=== PATIENT | female | born 1970 | race Caucasian/White ===

== ENCOUNTER → 2017-04-25 | Outpatient (CLI) | payer OTHER ==
--- NOTE | 2017-04-25 18:02 | US ---
EXAMINATION TYPE: US abdomen complete DATE OF EXAM: 04/25/2017 COMPARISON: NONE CLINICAL HISTORY: R10.9 abdominal pain. RUQ pain EXAM MEASUREMENTS: Liver Length: 16 cm Gallbladder Wall: 0.4 cm CBD: 0.5 cm Spleen: 10.7 cm Right Kidney: 11.9 x 4.7 x 3.9 cm Left Kidney: 12. 1 x 5.2 x 4.6 cm Pancreas: Tail obscured by overlying bowel gas Liver: wnl Gallbladder: gallstones seen Evidence for sonographic Hickman's sign: No CBD: wnl Spleen: wnl Right Kidney: No hydronephrosis or masses seen Left Kidney: Question possible duplex collecting system Upper IVC: wnl Abd Aorta: wnl The liver is homogenous. The intrahepatic portion of the IVC and proximal abdominal aorta are within normal limits. Common bile duct is unremarkable. The visualized portions of the pancreas are homog enous. The spleen is unremarkable. Kidneys are symmetric and free of hydronephrosis. No renal lesi ons are seen. IMPRESSION: Gallstones seen with thickened gallbladder wall. No evidence for pericholecystic fluid or common bile duct dilatation at this time.
== END | disposition home or self-care (01) ==
LOC: RADUSMAIN 16:54
PROVIDERS: ATTEND Family Medicine
DX: K80.20 Calculus of gallbladder without cholecystitis without obstruction (principal); K82.8 Other specified diseases of gallbladder
CPT/HCPCS: 76700

== ENCOUNTER 2017-05-18 10:13 | Day surgery (SDC) | payer OTHER ==
[2017-05-16 16:35] VITALS: BMI 29.0
--- NOTE | 2017-05-18 07:50 | P.GSHP ---
History of Present Illness H&P Date: 05/18/17 CHIEF COMPLAINT: Cholecystitis HISTORY OF PRESENT ILLNESS: The patient is a 46-year-old female who presents with history of epigastric including right upper quadrant abdominal pain. She underwent diagnostic studies for her gallbladder. Separately her clinical picture was consistent with cholecystitis. Now she presents for surgical intervention. PAST MEDICAL HISTORY: Please see list PAST SURGICAL HISTORY: Please see list MEDICATIONS: Please see list ALLERGIES: Denies. SOCIAL HISTORY: No illicit drug use or recent tobacco use FAMILY HISTORY: Pertinent for gallbladder disease REVIEW OF ORGAN SYSTEMS: CONSTITUTIONAL: No reports of fevers or chills. HEENT: Denies any troubles with the vision or hearing. PHYSICAL EXAM: VITAL SIGNS: Afebrile vital signs stable GENERAL: Well-developed pleasant in no acute distress. HEENT: No scleral icterus. Extraocular movements grossly intact. Moist buccal mucosa. NECK: Supple without lymphadenopathy. CHEST: Unlabored respirations. Equal bilateral excursions. CARDIOVASCULAR: Regular rate regular rhythm rhythm. Distal 2+ pulses. ABDOMEN: Soft, nondistended. Tender along the epigastrium and right upper quadrant. MUSCULOSKELETAL: No clubbing, cyanosis, or edema. NEURO: Cranial nerves II to XII within normal limits. No focal or lateralizing signs. PSYCH: Alert and oriented to person, place and time. ASSESSMENT: 1. Epigastric and right upper quadrant abdominal pain 2. Chronic cholecystitis PLAN: 1. Will need a robotic laparoscopic cholecystectomy possible open. Benefits and risks were described. 2. Heparin for DVT prophylaxis 5000 units. 3. Antibiotic prophylaxis. Past Medical History Past Medical History: Hypertension Additional Past Medical History / Comment(s): RUQ pain @times History of Any Multi-Drug Resistant Organisms: None Reported Past Surgical History: Breast Surgery, Uterine Ablation Additional Past Surgical History / Comment(s): CAROLYNN BREAST AUGMENTATION; D&C Past Anesthesia/Blood Transfusion Reactions: Postoperative Nausea & Vomiting ( PONV) Smoking Status: Never smoker - Past Family History Father Family Medical History: Cancer Additional Family Medical History / Comment(s): PROSTATE Medications and Allergies Home Medications Medication Instructions Recorded Confirmed Type Chlorthalidone [Hygroton] 25 mg PO DAILY 05/17/17 05/17/17 History Allergies Allergy/AdvReac Type Severity Reaction Status Date / Time No Known Allergies Allergy Verified 05/16/17 16:08
[~2017-05-18 10:13] MED LIST: ACETAMINOPHEN IV (For NPO) 1,000 MG in EMPTY BAG 1 BAG IVPB ONE; DEXAMETHASONE SOD PHOSPHATE 10 MG/ML 1 ML VIAL IV ONE; HEPARIN SODIUM,PORCINE 5,000 UNIT/ML 1 ML VIAL SQ ONE; LIDOCAINE 1% 20 ML VIAL (10MG/ML) FOR IV START INTRADERMA PRN; ONDANSETRON 4 MG/2 ML VIAL IVP ONE; SCOPOLAMINE 1.5MG/72HR PATCH TRANSDERM ONE; ceFAZolin IN SWFI 2 GM/20 ML SYRINGE IVP ONE; fentaNYL (PF) 50 MCG/ML 2 ML AMP IV PRN
[2017-05-18] MEDS ORDERED: INDOCYANINE GREEN 25 MG VIAL IV STA (10:47)
[2017-05-18] MEDS: LACTATED RINGERS 1,000 ML IV SCH (11:38)
[2017-05-18 11:52] LABS: Basophils % (A) 1 %; Eosinophils # (A) 0.1 k/uL (0-0.7); Eosinophils % (A) 1 %; Lymphocytes # (A) 1.6 k/uL (1.0-4.8); Lymphocytes % (A) 20 %; MCH 28.5 pg (25.0-35.0); MCHC 33.4 g/dL (31.0-37.0); MCV 85.4 fL (80.0-100.0); Mean Platelet Volume 6.8; Monocytes # (A) 0.5 k/uL (0-1.0); Monocytes % (A) 6 %; Neutrophils # (A) 5.7 k/uL (1.3-7.7); Neutrophils % (A) 71 %; Platelet Count 249 k/uL (150-450); RBC 4.91 m/uL (3.80-5.40); RDW 12.4 % (11.5-15.5)
[2017-05-18 12:18] LABS: ALT 27 U/L (9-52); AST 16 U/L (14-36); Albumin 3.8 g/dL (3.5-5.0); Alkaline Phosphatase 60 U/L (38-126); Anion Gap 9 mmol/L; Blood Urea Nitrogen 12 mg/dL (7-17); Calcium 9.2 mg/dL (8.4-10.2); Carbon Dioxide 30 mmol/L (22-30); Chloride 103 mmol/L (98-107); Glucose 90 mg/dL (74-99); Sodium 142 mmol/L (137-145); Total Bilirubin 0.6 mg/dL (0.2-1.3); Total Protein 6.6 g/dL (6.3-8.2)
[2017-05-18 12:25] LABS: Potassium 2.9 mmol/L (3.5-5.1)
[2017-05-18] MEDS ORDERED: POTASSIUM CHLORIDE 20 MEQ in SODIUM CHLORIDE 0.9% 100 ML IVPB STA (12:31)
[2017-05-18] MEDS ORDERED: SUCCINYLCHOLINE CHLORIDE 100 MG/5 ML SYR IV ONE (12:54)
[2017-05-18] MEDS ORDERED: LIDOCAINE 1% INJ 10MG/ML (20 ML MDV) ONE (12:54)
[2017-05-18] MEDS ORDERED: fentaNYL (PF) 50 MCG/ML 2 ML AMP ONE (12:54)
[2017-05-18] MEDS ORDERED: GLYCOPYRROLATE 0.2 MG/ML 2 ML VIAL ONE (12:54)
[2017-05-18] MEDS ORDERED: MIDAZOLAM 2 MG/2 ML VIAL ONE (12:54)
[2017-05-18] MEDS ORDERED: PROPOFOL 10 MG/ML 20 ML VIAL IV ONE (12:54)
[2017-05-18] MEDS ORDERED: NEOSTIGMINE 1 MG/ML 10 ML VIAL ONE (12:54)
[2017-05-18] MEDS ORDERED: KETOROLAC 30 MG/ML 1 ML VIAL ONE (12:54)
[2017-05-18] MEDS ORDERED: ROCURONIUM BROMIDE 10 MG/ML 10 ML VIAL IV ONE (12:54)
[2017-05-18] MEDS ORDERED: BUPIVACAINE (PF) 0.25% 30 ML VIAL SQ ONE (13:27)
[2017-05-18] MEDS ORDERED: POTASSIUM CHLORIDE 20 MEQ in SODIUM CHLORIDE 0.9% 100 ML IVPB ONE (14:00)
[2017-05-18 15:09] VITALS: TEMP 98
--- NOTE | 2017-05-18 15:34 | P.OP ---
Date of Procedure: 05/18/17 Description of Procedure: SURGEON: MANISH EDMONDSON MD NURSING TECHNICIAN: 1. Batool Delarosa 2. Arabella Sam PREOPERATIVE DIAGNOSES: 1. Chronic cholecystitis with gallstones. 2. Hypertension. 3. Hypokalemia. 4. Right upper quadrant abdominal pain. POSTOPERATIVE DIAGNOSES: 1. Chronic cholecystitis with gallstones. 2. Hypertension. 3. Hypokalemia. 4. Right upper quadrant abdominal pain. 5. Right inguinal hernia, indirect. 6. Umbilical hernia. OPERATION: 1. Robotic-assisted da Ed Xi laparoscopic cholecystectomy, multiport with FIREFLY ESTIMATED BLOOD LOSS: 10 mL. SPECIMENS REMOVED: (Gallbladder) COMPLICATIONS: None. Condition: stable Disposition: floor OPERATIVE FINDINGS: 1. Large gallstone over 3 cm from a long gallbladder. 2. [place] technique performed to avoid injury to the common bile duct. 3. Right inguinal hernia, indirect. 4. Umbilical hernia. INDICATIONS: The patient is a 46-year-old female who presents with symptomatic gallstones. Surgical intervention with a robotic cholecystectomy was described at length including injury to the biliary tree, bleeding, infection, need for further surgery. Informed consent was obtained. Robotic assisted laparoscopic approach was described. Benefits and risks of the procedure including but not limited to bleeding, infection, injury to the biliary tree was described. Informed consent was obtained. DESCRIPTION OF PROCEDURE: Patient was brought to the operating room, placed in supine position. After general induction, the abdomen had been prepped and draped in standard sterile fashion. The robotic da Ed XI system was primed. After a timeout protocol was performed, the patient had been prepped and draped in standard sterile fashion. The patient was injected with indocyanine green. The robot was docked along the left lateral abdomen. The patient was repositioned in reverse Trendelenburg position. Please note prior to docking of the robot; however, a 5 mm 0 degrees laparoscopic trocar entry was performed along the left upper quadrant. The abdomen was insufflated to 15 mm Hg pressure which he tolerated well. Diagnostic laparoscopy demonstrated no injury to the small bowel or viscera. Right indirect inguinal hernia was identified including a small umbilical hernia. Next, two 8 mm robotic ports were placed along the right upper abdomen. The camera 8-mm port was maintained along the epigastrium. Another 8 mm port was placed along the left upper abdominal wall after exchanging the 5 mm port. Please note that the ports were placed at least 10 to 15 cm away from the target anatomy of the gallbladder. Using a grasper for arm 3, a grasper for arm 2, including hook cautery for arm 1 , the robotic system was docked and primed as described. Instruments were interchanged by the banking assistant including hook cautery, Bovie cautery scissors and clip appliers. I had sat at the console. The gallbladder was bulbous with over 3 cm stone adding complexity to the case. Next, adhesions were identified along the infundibulum of the gallbladder and addressed using hook cautery. The gallbladder fundus was retracted over the dome of the liver. Initial attention was brought to the infundibulum which was gently retracted in the inferior lateral approach. Despite adhesionolysis, the cystic duct was was secured by a redundant gallbladder infundibulum. The common bile duct was identified. FIREFLY was used to identify the common bile duct and cystic duct. Decompression of the gallbladder was performed to maneuver the gallbladder with contamination of the case. A dome down technique using was performed from the gallbladder fundus to the infundibulum. PLASTIC clip appliers were used along the cystic duct with 3 clips placed followed by another 3 clips along the cystic artery. The hepatic fossa was completely dry. The hepatic fossa was checked for hemostasis. The robot was undocked. I re-scrubbed into the case. The gallbladder contained an extremely large gallstone over 3 cm in size. The incision along the left upper quadrant as a result was widened. The specimen was removed from the abdominal cavity using an Endo Catch bag and passed off for further pathological analysis. Using a 10 mm Endo Catch bag via the left upper quadrant incision, the specimen was removed from the abdominal cavity. All pneumoperitoneum instruments were evacuated from the abdominal cavity. The incisions were reapproximated using 4-0 Monocryl in an interrupted subcuticular fashion. Fascial defect at the left upper quadrant was closed using 0 Vicryl in Jaret Hicks. Please note along the trocar sites, local anesthetic was placed as a field block prior to insertion of all instruments. The incisions were cleansed using hydrogen peroxide and normal saline. Dermabond was applied to the skin. An Optifoam dressing was placed over the drain site and left upper quadrant. At the end of the procedure needle, sponge, and instrument count had been verified correct by the surgical orderly. The patient was transferred to postanesthesia care unit in stable condition. Her family was updated along the findings including level of care. Plan - Discharge Summary Discharge Rx Participant: Yes New Discharge Prescriptions: New Amoxic-Pot Clav 875-125Mg [Augmentin 875-125] 1 each PO Q12HR 5 Days #10 tab HYDROcodone/APAP 5-325MG [[place] 5-325] 1 tab PO Q6HR PRN #15 tab PRN Reason: Pain Ibuprofen [Motrin] 600 mg PO Q8HR PRN #30 tab PRN Reason: Pain Discontinued Chlorthalidone [Hygroton] 25 mg PO DAILY Discharge Medication List Amoxic-Pot Clav 875-125Mg [Augmentin 875-125] 1 each PO Q12HR 5 Days #10 tab 05/06 [Rx] HYDROcodone/APAP 5-325MG [[place] 5-325] 1 tab PO Q6HR PRN #15 tab 05/18/17 [Rx] Ibuprofen [Motrin] 600 mg PO Q8HR PRN #30 tab 05/18/17 [Rx] Follow up Appointment(s)/Referral(s): Manish Edmondson MD [STAFF PHYSICIAN] - 06/05/17 Patient Instructions/Handouts: Laparoscopic Cholecystectomy (DC) Activity/Diet/Wound Care/Special Instructions: No lifting for 4 pounds in 4 weeks. May shower. No bath tub soaks. Discontinue dressing on Sunday, May 21. Use hydrogen peroxide after showering along all incisions. Discharge Disposition: HOME SELF-CARE
[2017-05-18] MEDS ORDERED: fentaNYL (PF) 50 MCG/ML 2 ML AMP IV ONE (15:43)
[2017-05-18] MEDS ORDERED: fentaNYL (PF) 50 MCG/ML 2 ML AMP IVP ONE (15:51)
[2017-05-18] MEDS ORDERED: ONDANSETRON 4 MG/2 ML VIAL IVP ONE (16:37)
[2017-05-18] MEDS ORDERED: IV FLUID CONTINUATION 950 ML IV ONE (16:38)
[2017-05-18 16:57] VITALS: RESP 18
[2017-05-18] MEDS ORDERED: HYDROcodone/APAP 5-325MG 1 EACH TAB PO ONE (17:15)
[2017-05-18 18:30] VITALS: BP 138/72; PULSE 91
== END 2017-05-18 18:46 | disposition home or self-care (01) ==
LOC: OR 10:13
PROVIDERS: ATTEND Surgery Plastic and Reconstructive Surgery
DX: K80.10 Calculus of gallbladder with chronic cholecystitis without obstruction (principal); K40.90 Unilateral inguinal hernia, without obstruction or gangrene, not specified as recurrent; K42.9 Umbilical hernia without obstruction or gangrene; I10 Essential (primary) hypertension; E87.6 Hypokalemia; Z79.899 Other long term (current) drug therapy
CPT/HCPCS: 47562; S2900; 80053; 81025; 85025; 86850; 86900; 86901; 88304

== ENCOUNTER → 2017-06-25 | Outpatient (CLI) | payer OTHER ==
--- NOTE | 2017-06-25 15:15 | CT ---
EXAMINATION TYPE: CT abdomen pelvis w con DATE OF EXAM: 06/25/2017 COMPARISON: NONE HISTORY: Abd pain CT DLP: 964.8 mGycm Automated exposure control for dose reduction was used. TECHNIQUE: Helical acquisition of images from the lung bases through the pelvis have been completed. CONTRAST: Performed with Oral Contrast and with IV Contrast, patient injected with 100 mL of Isovue 300. FINDINGS: Small umbilical hernia contains fat. In the left lower quadrant there is a focus of increas ed attenuation within the subcutaneous fat and rectus muscle which may be related to prior trocar viridiana cement, there is some focal skin thickening. LUNG BASES: Left lung base shows a 5 mm nodule on axial image 1, additional 3 mm nodule on axial imag e 6 laterally at the left lung base. No pleural or pericardial effusion. Breast prostheses noted inci dentally. AORTA: No significant abnormality is appreciated. LIVER/GB: Patient is post cholecystectomy. Liver shows a focus of low attenuation in the left lobe on axial image 12 measuring approximately 13 mm which is less well-defined on delayed imaging, this cou ld possibly represent hemangioma. PANCREAS: No significant abnormality is seen. SPLEEN: No significant abnormality is seen. ADRENALS: No significant abnormality is seen. KIDNEYS: No significant abnormality is seen. REPRODUCTIVE ORGANS: Uterus and ovaries thought to be within normal limits. BOWEL: Appendix is thought to be normal. No evident obstruction. FREE AIR: No Free Air visible. ASCITES: None visible. PELVIC ADENOPATHY: None visualized. RETROPERITONEAL ADENOPATHY: No Retroperitoneal Adenopathy visible. URINARY BLADDER: No significant abnormality is seen. OSSEOUS STRUCTURES: No significant abnormality is seen. IMPRESSION: SUSPECT POSTOP CHANGES DESCRIBED, CORRELATE FOR TENDERNESS AT THE SITE OF PATIENT'S TROCAR PLACEME NT, CORRELATE TO EXCLUDE CELLULITIS. FOLLOW-UP RECOMMENDED OF INDETERMINATE LIVER LESION AND LEFT LOW ER LOBE LUNG NODULES.
== END | disposition home or self-care (01) ==
LOC: RADCTMAIN 12:20
PROVIDERS: ATTEND Surgery Plastic and Reconstructive Surgery
DX: K76.9 Liver disease, unspecified (principal); K57.30 Diverticulosis of large intestine without perforation or abscess without bleeding; Z90.49 Acquired absence of other specified parts of digestive tract
CPT/HCPCS: 74177; Q9967

== ENCOUNTER → 2017-07-14 | Outpatient (CLI) | payer OTHER ==
--- NOTE | 2017-07-14 22:08 | CT ---
EXAMINATION TYPE: CT chest wo con DATE OF EXAM: 07/14/2017 COMPARISON: CT abdomen pelvis 06/25/2017 HISTORY: 46-year-old female other nonspecific abnormal finding of the lung field. TECHNIQUE: Contiguous axial scanning of the chest without IV contrast. Coronal and sagittal reconstru ctions performed. CT DLP: 563 mGycm Automated exposure control for dose reduction was used. FINDINGS: Bilateral retropectoral breast prostheses. Heart normal size without pericardial effusion. Aorta normal caliber with conventional branching anatomy. No thoracic lymphadenopathy by CT size criteria. Evaluation of the lungs shows: 6 mm peripheral right basilar pulmonary nodule axial image 48. 5 mm peripheral left basilar pulmonary nodule axial image 42. 3 mm left basilar pulmonary nodule along the major fissure, axial image 39. 7 mm posterior left midlung pulmonary nodule axial image 36. No consolidation or pleural effusion. Visualized changes in the upper abdomen are similar as compared to 06/25/2017. Refer to that report for further recommendations. Bones: No osseous destructive process. IMPRESSION: APPROXIMATELY FOUR PULMONARY NODULES ON BOTH SIDES MEASURING UP TO 7 MM. REVISED FLEISCHNER GUIDELIN ES RECOMMEND CT FOLLOW-UP IN 3-[address] BY A CT IN 18-24 MONTHS TO ENSURE STABILITY.
== END ==
LOC: RADCTMAIN 09:23
PROVIDERS: ATTEND Family Medicine
DX: R91.8 Other nonspecific abnormal finding of lung field (principal)
CPT/HCPCS: 71250

== ENCOUNTER → 2017-10-20 | Outpatient (CLI) | payer OTHER ==
--- NOTE | 2017-10-21 15:11 | CT ---
EXAMINATION TYPE: CT chest wo con DATE OF EXAM: 10/20/2017 COMPARISON: 07/14/2017 HISTORY: Lung nodule follow up CT DLP: 254.00 mGycm, Automated exposure control for dose reduction was used. CONTRAST: Performed injected with 0 mL of Isovue 300. TECHNIQUE: Axial images were obtained at 5 mm thick sections. Reconstructed images are reviewed on [employer] computer in the coronal plane. FINDINGS: Portion of the thyroid visualized is normal. Bilateral breast prostheses are present. No rosario spicious axillary adenopathy is evident. There is a 0.5 cm x 0.7 nodule in the posterior left upper lung field. Series 4 image 35. This is sta ble. There is a 0.6 cm rounded nodule in the periphery of the left lower lobe. Series 4 image 41. Thi s is stable within measurement error. There is a 0.3 cm density within the greater fissure at the lev el of the lingula, series 4 image 39. This was present previously and appears stable. No enlarged mediastinal or hilar adenopathy is evident. The ascending aorta diameter at the level o f the main pulmonary artery is 3.7 cm. The main pulmonary artery diameter at the bifurcation is 3.[address] sections are obtained through the upper abdomen. Abdomen is essentially unremarkable. IMPRESSIONS: 1. Stable left lung nodules. Continued monitoring for stability is recommended, follow up CT chest 6 months.
== END | disposition home or self-care (01) ==
LOC: RADCTMAIN 08:41
PROVIDERS: ATTEND Family Medicine
DX: R91.8 Other nonspecific abnormal finding of lung field (principal)
CPT/HCPCS: 71250

== ENCOUNTER → 2018-04-23 | Outpatient (CLI) | payer OTHER ==
--- NOTE | 2018-04-23 10:06 | CT ---
EXAMINATION TYPE: CT chest wo con DATE OF EXAM: 04/23/2018 COMPARISON: October 20, 2017 HISTORY: Solitary pulmonary nodule CT DLP: 284.[address] of the chest was performed with lung and mediastinal window settings submitted. The la ck of contrast limits evaluation of the vascular, mediastinal and parenchymal structures including th e upper abdomen. LUNGS: The lungs are clear and free of infiltrate. No atelectasis. Stable left lower lobe pulmonary n odules measuring 4 mm image 39 and 6.8 mm image 34 versus 4 mm and 6.7 mm previously. There appears t o be a new nodule right lower lobe image 30 measuring 3.6 mm. No additional nodules identified at thi s time. No evidence for pulmonary mass. MEDIASTINUM/CAITLIN: Thoracic aorta is of normal caliber with limited evaluation given lack of contrast . The heart is not enlarged. No evidence for mediastinal mass. No lymph nodes greater than 1cm. UPPER ABDOMEN: No significant abnormality is seen. OTHER: No significant other abnormality. IMPRESSION: 1. Stable left lower lobe pulmonary nodules and a new right lower lobe pulmonary nodule. Follow-up i n 6 months is advised.
== END | disposition home or self-care (01) ==
LOC: RADCTMAIN 08:56
PROVIDERS: ATTEND Family Medicine
DX: R91.8 Other nonspecific abnormal finding of lung field (principal)
CPT/HCPCS: 71250

== ENCOUNTER → 2018-04-29 | Outpatient (CLI) | payer OTHER ==
--- NOTE | 2018-04-29 11:49 | ECHOS ---
STRESS ECHOCARDIOGRAM INDICATIONS: Chest pain. MEDICATIONS: Potassium, HCTZ BASELINE HEART RATE: 86 BASELINE BLOOD PRESSURE: 110/67 MAXIMUM HEART RATE: 161 MAXIMUM BLOOD PRESSURE: 180/101 85% MPHR: 149 100% MPHR: 175 METS: 11.3 MAXIMUM STAGE REACHED: 4 TOTAL EXERCISE TIME: 9:45 CLINICAL INFORMATION: Baseline EKG shows sinus rhythm, normal axis, normal intervals. The patient exercised on Kavon protocol for a total of 9 minutes and 45 seconds achieving 11 METS, 92% of predicted maximal heart rate without chest pain. At peak exercise, there was [address]- segment depression noted in the inferolateral leads. Baseline echo shows normal left ventricular size, wall motion, systolic function. Postexercise, there is normal hyperdynamic response of all segments of myocardium noted. Echo contrast agent was used to enhance endocardial visualization. CONCLUSION: 1. Good exercise tolerance. 2. Abnormal stress test by EKG criteria. 3. Negative stress echo. MMODL / IJN: [id number] /
== END | disposition home or self-care (01) ==
LOC: RADNMMAIN 09:06
PROVIDERS: ATTEND Family Medicine
DX: R94.39 Abnormal result of other cardiovascular function study (principal)
CPT/HCPCS: 93351

== ENCOUNTER → 2018-11-06 | Outpatient (CLI) | payer OTHER ==
--- NOTE | 2018-11-07 07:47 | US ---
EXAMINATION TYPE: US venous doppler duplex LE DATE OF EXAM: 11/06/2018 6:06 PM COMPARISON: NONE HISTORY: Edema. Reflux study. No hx of DVT. Pt not on blood thinners. SIDE PERFORMED: Bilateral 1) Color flow is present and patency is documented in the following vessels. No DVT or SVT is noted . EIV Common Femoral Vein Deep Femoral Vein Femoral Vein Popliteal Vein Proximal Calf Veins Greater Saph Vein Upper Small Saph Vein 2) There appears to be no evidence of reflux in vessels imaged. No evidence of DVT in veins imaged from prox calf veins to EIV. Prox calf veins appear too small to perform valsalva. Grayscale, color Doppler, spectral Doppler imaging performed. IMPRESSION: Venous reflux is not evident.
== END | disposition home or self-care (01) ==
LOC: RADUSMAIN 17:09
PROVIDERS: ATTEND Internal Medicine Cardiovascular Disease
DX: R60.0 Localized edema (principal)
CPT/HCPCS: 93970

== ENCOUNTER → 2019-04-14 | Outpatient (CLI) | payer OTHER ==
--- NOTE | 2019-04-14 09:17 | CT ---
EXAMINATION TYPE: CT chest wo con DATE OF EXAM: 04/14/2019 COMPARISON: Chest CT April 23, 2018 and older CTs back to July 14, 2017 HISTORY: Multiple lung nodules CT DLP: 311.3 mGycm. Automated Exposure Control for Dose Reduction was Utilized. TECHNIQUE: CT scan of the thorax is performed without IV contrast. FINDINGS: LUNGS: Stable lateral 5 x 4 mm left lower lobe nodule axial image 40. Shows superior and posterior t o this there is stable 6 x 3 mm nodule left lower lobe axial image 36. Stable 3 x 2 mm lingular nodul e axial image 36. No new greater than 4 mm nodules or masses . No pleural effusion or pneumothorax. T racheobronchial tree is patent. MEDIASTINUM: Lack of IV contrast is noted to limit evaluation for mediastinal and especially hilar ad enopathy. There are no definitive greater than 1 cm hilar or mediastinal lymph nodes. No cardiomega ly or pericardial effusion is seen. OTHER: Subpectoral bilateral breast implants redemonstrated. Gallbladder is not seen and presumed ofe gically absent. IMPRESSION: Stable small left-sided nodules from July 14, 2017 presumed benign in etiology. No new n odules or adenopathy.
== END | disposition home or self-care (01) ==
LOC: RADCTMAIN 07:32
PROVIDERS: ATTEND Family Medicine
DX: R91.8 Other nonspecific abnormal finding of lung field (principal)
CPT/HCPCS: 71250

== ENCOUNTER → 2020-06-23 | Outpatient (CLI) | payer OTHER ==
--- NOTE | 2020-06-24 10:20 | MM ---
Reason for exam: screening (asymptomatic). Last mammogram was performed 2 years and 4 months ago. History: Patient had first child at age 35. Retro-pectoral saline implants in both breasts, January 2000. Took hormonal contraceptives for 10 years beginning at age 19. Physical Findings: A clinical breast exam by your physician is recommended on an annual basis and results should be correlated with mammographic findings. MG 3D Screen Mammo Imp/Cad Bilateral CC, MLO, and ID view(s) were taken. Prior study comparison: February 28, 2018, mammogram. May 03, 2016, mammogram. The breast tissue is extremely dense which could obscure a lesion on mammography. Bilateral implants are intact. No significant changes when compared with prior studies. ASSESSMENT: Benign, BI-RAD 2 RECOMMENDATION: Routine screening mammogram of both breasts in 1 year.
== END | disposition home or self-care (01) ==
LOC: RADMAMWWP 08:40
PROVIDERS: ATTEND Obstetrics & Gynecology
DX: Z12.31 Encounter for screening mammogram for malignant neoplasm of breast (principal)
CPT/HCPCS: 77063; 77067

== ENCOUNTER → 2020-12-01 | Outpatient (CLI) | payer OTHER ==
--- NOTE | 2020-12-01 08:55 | CT ---
EXAMINATION TYPE: CT chest wo con DATE OF EXAM: 12/01/2020 COMPARISON: Chest CT April 14, 2019 and older studies HISTORY: Follow up to lung nodule CT DLP: 588 mGycm. Automated Exposure Control for Dose Reduction was Utilized. TECHNIQUE: CT scan of the thorax is performed without IV contrast. FINDINGS: LUNGS: Stable lateral 5 x 4 mm left lower lobe nodule axial image 41 study from July 14, 2017. Super ior and posterior to this, there is stable 6 x 3 mm nodule left lower lobe axial image 34 stable from July 14, 2017. Stable 3 x 2 mm lingular nodule axial image 38. Mild bibasilar linear scarring. No n ew or enlarging greater than 5 mm nodules or masses . No pleural effusion or pneumothorax. Tracheobro nchial tree is patent. MEDIASTINUM: Lack of IV contrast is noted to limit evaluation for mediastinal and especially hilar ad enopathy. There are no definitive greater than 1 cm mediastinal lymph nodes. No cardiomegaly or per icardial effusion is seen. Ascending aorta measures up to 3.4 cm in diameter. OTHER: Subpectoral bilateral breast implants are redemonstrated. Gallbladder is not seen and presumed surgically absent. IMPRESSION: Stable small left-sided nodules from July 14, 2017 presumed benign in etiology. No new o r enlarging nodules or adenopathy. Findings presumed benign. No further follow-up necessary per Fleis chner Society recommendations.
== END | disposition home or self-care (01) ==
LOC: RADCTMAIN 07:57
PROVIDERS: ATTEND Family Medicine
DX: R91.8 Other nonspecific abnormal finding of lung field (principal)
CPT/HCPCS: 71250

== ENCOUNTER → 2021-09-01 | Outpatient (CLI) | payer OTHER ==
--- NOTE | 2021-09-01 17:28 | US ---
EXAMINATION TYPE: US venous doppler duplex LE LT DATE OF EXAM: 09/01/2021 5:01 PM COMPARISON: NONE CLINICAL HISTORY: M79.605 PAIN LEFT LEG. Patient states left knee pain after kneeling from working on her garden. On baby aspirin. SIDE PERFORMED: Left TECHNIQUE: The lower extremity deep venous system is examined utilizing real time linear array sonog jorge with graded compression, doppler sonography and color-flow sonography. VESSELS IMAGED: Common Femoral Vein Deep Femoral Vein Greater Saphenous Vein * Femoral Vein Popliteal Vein Small Saphenous Vein * Proximal Calf Veins (* superficial vessels) Left Leg: Negative for DVT IMPRESSION: No evidence of left lower extremity DVT.
== END | disposition home or self-care (01) ==
LOC: RADUSWWP 16:44
PROVIDERS: ATTEND Family Medicine
DX: M79.605 Pain in left leg (principal)

== ENCOUNTER → 2021-10-15 | Outpatient (CLI) | payer OTHER ==
--- NOTE | 2021-10-16 09:43 | CT ---
EXAMINATION TYPE: CT chest wo con DATE OF EXAM: 10/15/2021 COMPARISON: 12/01/2020, 04/14/2019. HISTORY: Abnormal findings of lung field CT DLP: 302.6 mGycm, Automated exposure control for dose reduction was used. CONTRAST: Performed injected with 0 mL of Isovue 300. TECHNIQUE: Axial images were obtained at 5 mm thick sections. Reconstructed images are reviewed on [employer] computer in the coronal plane. FINDINGS: Portion of the thyroid visualized is normal. Bilateral breast prostheses are present. Very subtle 0.5 cm nodule is within the lateral left lung field. This was present previously and stab le. Series 4 image 39. This 0.3 cm nodule within the slightly more anterior inferior left lung is sta ble. Series 4 image 35. These are stable from 04/14/2019. No enlarged mediastinal or hilar adenopathy is evident. The ascending aorta diameter at the level o f the main pulmonary artery is 3.9 cm. The main pulmonary artery diameter at the bifurcation is 2.[address] sections are obtained through the upper abdomen. Abdomen is essentially unremarkable. IMPRESSIONS: 1. Stable small left lower lung field nodules.
== END | disposition home or self-care (01) ==
LOC: RADCTMAIN 07:21
PROVIDERS: ATTEND Family Medicine
DX: R91.8 Other nonspecific abnormal finding of lung field (principal)
CPT/HCPCS: 71250

== ENCOUNTER → 2021-11-02 | Outpatient (CLI) | payer OTHER ==
--- NOTE | 2021-11-02 19:22 | MM ---
Reason for Exam: Screening (asymptomatic). Last mammogram was performed 1 year(s) and 4 month(s) ago. Patient History: Menarche at age 15. First Full-Term at age 35. Late child-bearing (after 30). Perimenopausal. Hormonal Contraceptives for 10 years from age 19 until age 32. 01/2000, Bilateral Implants. Risk Values: Lanette 5 year model risk: 1.3%. NCI Lifetime model risk: 12.5%. Prior Study Comparison: 03/03/2013 Bilateral Diagnostic Mammogram, [facility]. 05/03/2016 Screening Mammogram, Unknown. 02/28/2018 Screening Mammogram, Unknown. 06/23/2020 Bilateral Screening Mammogram, [facility]. Tissue Density: The breast tissue is heterogeneously dense. This may lower the sensitivity of mammography. Findings: Analyzed By CAD. There are bilateral retropectoral saline implants. On the right MLO view, there is a lobulated area elongated asymmetric density inferiorly and incompletely disperses on 3-D images. This may represent superimposition shadow but further evaluation is recommended. On the left, there appears to be an underlying area of distortion 8 and 9:00 position. Further evaluation is recommended. Otherwise, no significant change. Overall Assessment: Incomplete: need additional imaging evaluation, BI-RAD 0 Management: Special View Mammogram of both breasts. 1. Right breast to include Spot 3-D MLO and 3-D lateral views. 2. Left breast to include spot drainage CC, MLO, and 3-D LM views. Subsequent ultrasound for the suspicious distortion. [facility] will attempt to contact patient to return for supplemental views and ultrasound if indicated. Electronically signed and approved by: Stefan Suazo M.D. Radiologist
== END | disposition home or self-care (01) ==
LOC: RADMAMWWP 07:42
PROVIDERS: ATTEND Family Medicine
DX: Z12.31 Encounter for screening mammogram for malignant neoplasm of breast (principal); Z78.0 Asymptomatic menopausal state
CPT/HCPCS: 77063; 77067

== ENCOUNTER → 2021-11-28 | Day surgery (SDC) | payer OTHER ==
--- NOTE | 2021-12-02 14:57 | USB ---
Risk Values: Lanette 5 year model risk: 1.3%. NCI Lifetime model risk: 12.3%. Pathology Description: Location: 6 o'clock. Marker Left Behind. Needle Type: Mammotome Cores: 5 Skin Nicks: 1 Gauge: 12 The procedure of ultrasound guided core biopsy was explained to the patient. Benefits, alternatives, and risks were discussed. An informed consent was then obtained. The patient was placed in supine positioning for imaging and for the procedure. The overlying skin was prepped and draped in usual sterile fashion.6 cc of lidocaine was used as anesthetic into the skin and subcutaneous tissue up to area of concern in the left breast. A sy was made with surgical scalpel. Under ultrasound guidance, a 12-gauge vacuum assisted biopsy gun device was used to obtain 5 core samples. Following this, a biopsy clip (hydro butterfly) was left in lesion. The patient tolerated the procedure well without any immediate complication. The patient was kept in the radiology department for short stay after the procedure and then discharged home in stable condition. Postprocedure mammogram: The patient was transferred to mammography for physician ordered post procedure mammogram for clip placement verification. Impression: Successful, uncomplicated ultrasound guided core biopsy of area of concern in the left breast, full pathology results to follow. Pathology Results: Result: Malignant, Invasive ductal carcinoma. LEFT BREAST, 6:00, ULTRASOUND GUIDED NEEDLE CORE BIOPSY: Invasive well differentiated ductal carcinoma (grade 1). See Surgical Pathology Cancer Case Summary and Comment. Tissue Density: Left: The breast tissue is heterogeneously dense. This may lower the sensitivity of mammography. Overall Assessment: Malignant Assessment: MG diagnostic mammo LT wo CAD. - Left: Known biopsy proven malignancy, BI-RAD 6. Management: Surgical Consultation of the left breast. Treatment and follow up. Electronically signed and approved by: Wesley Morelos D.O.
== END ==
LOC: RADUSWWP 12:31
PROVIDERS: ATTEND Family Medicine
DX: D05.12 Intraductal carcinoma in situ of left breast (principal); R92.8 Other abnormal and inconclusive findings on diagnostic imaging of breast
CPT/HCPCS: 88305; 88342; 88341; 77065; 19083; A4648

== ENCOUNTER → 2023-01-08 | Outpatient (CLI) | payer OTHER ==
--- NOTE | 2023-01-08 08:11 | US ---
EXAMINATION TYPE: US pelvis complete transvag DATE OF EXAM: 01/08/2023 COMPARISON: NONE CLINICAL INDICATION: Female, 52 years old with history of C50.919 BREAST CANCER; breast ca has gene TECHNIQUE: Transvaginal (TV) and Transabdominal (TA) . EXAM MEASUREMENTS: Uterus: 9.2 x 4.3 x 6.0 cm Endometrial Stripe: .4 cm Left Ovary: 2.1 x 1.7 x 1.6 cm 1. Uterus: Anteverted Nabothian cysts seen. Hypoechoic area seen 1.6 x 1.5 x 1.6 cm. 2. Endometrium: Anechoic area seen .8 x .3 x .5 cm. 3. Right Ovary: Obscured by bowel gas 4. Left Ovary: wnl 5. Bilateral Adnexa: wnl 6. Posterior cul-de-sac: wnl Incidental cervical nabothian cysts. Trace fluid within the endometrial canal. Hypoechoic 1.6 cm lesi on within the uterine posterior fundus most consistent with a fibroid. Left ovary appears unremarkabl e. Right ovary is obscured by overlying bowel gas. IMPRESSION: 1. Fibroid changes uterus with a 1.6 cm intramural fibroid in the posterior uterine fundus. 2. Trace fluid within the endometrial canal. 3. Right ovary is obscured by overlying bowel gas.
== END | disposition home or self-care (01) ==
LOC: RADUSWWP 07:30
PROVIDERS: ATTEND Obstetrics & Gynecology
DX: C50.919 Malignant neoplasm of unspecified site of unspecified female breast (principal); D25.1 Intramural leiomyoma of uterus; R14.0 Abdominal distension (gaseous)
CPT/HCPCS: 76830; 76856

== ENCOUNTER → 2023-03-09 | Outpatient (CLI) | payer OTHER ==
--- NOTE | 2023-03-09 19:48 | BD ---
EXAMINATION TYPE: Axial Bone Density DATE OF EXAM: 03/09/2023 CLINICAL HISTORY: 52 years old Female. ICD-10 CODE: N95.1 MENOPAUSAL AND FEMALE CLIMACTERIC STATES Height: 64 Weight: 206.3 FRAX RISK QUESTIONS: Alcohol (3 or more units per day): no Family History (Parent hip fracture): no Glucocorticoids (More than 3mos): no History of Fracture in Adulthood: no Secondary Osteoporosis: 1. Type 1 Diabetes: no 2. Hyperthyroidism: no 3. Menopause before 45: no 4. Malnutrition: no 5. Chronic liver disease: no Rheumatoid Arthritis: no Current Tobacco Use: no RISK FACTORS HISTORY OF: Hip Fracture (Right/Left): no Spine Fracture: no History of Wrist Fracture: no Surgery to Spine/Hip(right/left)/Wrist (right/left): no Family History of Osteoporosis: no Active: somewhat Diet low in dairy products/other sources of calcium: no Postmenopausal woman: yes Take estrogen and/or progesterone medications: hormone shashank past year Lost more than 2 inches in height since high school: no Frequent falls: no Poor Health: no Hyperparathyroidism: no Adrenal Insufficiency: no MEDICATIONS: Prednisone or other steroids: no Thyroid Medications:no Osteoporosis Medications: no Additional Medications: Hormone Shashank, BP Meds, Additional History: Breast Ca. 2021 EXAM MEASUREMENTS: Bone mineral densitometry was performed using the AVdirect System. Bone mineral density as measured about the Lumbar spine is: ----- L1-L4(G/cm2): 1.371 T Score Values are as follows: ----- L1: 0.1 ----- L2: 1.3 ----- L3: 1.8 ----- L4: 2.7 ----- L1-L4: 1.6 Z Score Values are as follows: ----- L1: -0.5 ----- L2: 0.7 ----- L3: 1.3 ----- L4: 2.2 ----- L1-L4: Baseline Study Bone mineral density about the R hip (g/cm2): 1.133 Bone mineral density about the L hip (g/cm2): 1.153 T Score values are as follows: -----R Neck: 0.2 -----L Neck: 0.2 -----R Total: 1.0 -----L Total: 1.2 Z Score values are as follows: -----R Neck: 0.4 -----L Neck: 0.4 -----R Total: 0.8 -----L Total: 1.0 Baseline Study FRAX%s: The graph provided illustrates a 3.3% chance for a major osteoporotic fx and a 0.0% chance fo r the hips probability for fx in 10 years time. IMPRESSION: Normal (Values between +1 and -1 indicate normal bone mass). Consider repeating this study in 5 year s or sooner if there is some new clinical indication. NOTE: T-SCORE=SD OF THE YOUNG ADULT MEAN.
== END | disposition home or self-care (01) ==
LOC: RADBDWWP 14:59
PROVIDERS: ATTEND Obstetrics & Gynecology
DX: N95.1 Menopausal and female climacteric states (principal)
CPT/HCPCS: 77080

== ENCOUNTER → 2023-05-16 | Outpatient (CLI) | payer OTHER ==
--- NOTE | 2023-05-16 09:08 | CT ---
EXAMINATION TYPE: CT chest wo con DATE OF EXAM: 05/16/2023 COMPARISON: 10/15/2021 HISTORY: 52-year-old female R91.8 Abnormal findings of lung field. TECHNIQUE: Contiguous axial scanning of the chest without IV contrast. Coronal/sagittal reconstructio ns performed. CT DLP: 391.6mGycm. Automatic exposure control utilized for a dose reduction. FINDINGS: Bilateral breast implants, possible revision implants compared to 202. Heart normal size without pericardial effusion. Ectatic ascending aorta 3.8 cm, unchanged. Conventional arch vessel branching anatomy. No thoracic lymphadenopathy by CT size criteria. Lungs show no consolidation or pleural effusion. * A 5 mm peripheral left basilar pulmonary nodule remains unchanged back to 10/15/2021. * 3 mm inferior lingular pulmonary nodule, axial image 36 also remains unchanged. * Punctate 2 mm right mid lung pulmonary nodule, axial image 27 is unchanged. Tiny hiatal hernia. Gallbladder appears surgically absent. There may be punctate cystic duct remnant stones measuring up to 8 mm, unchanged from prior. Mild overall stool burden. Bones: No osseous destructive process. IMPRESSION: A few pulmonary nodules measuring up to 5 mm remain unchanged back to 10/15/2021 compatible with a awa ign etiology. No acute pulmonary process.
== END | disposition home or self-care (01) ==
LOC: RADCTMAIN 08:03
PROVIDERS: ATTEND Family Medicine
DX: R91.8 Other nonspecific abnormal finding of lung field (principal)
CPT/HCPCS: 71250